=== PATIENT | female | born 1985 | race Caucasian/White ===

== ENCOUNTER 2017-08-07 16:48 | Inpatient (IN) | payer OTHER ==
[~2017-08-07] VITALS: Ht 167.6 cm; Wt 88.2 kg
[2017-08-07 17:29] LABS: ALANINE AMINOTRANSFERASE 15 U/L (12-78); ALBUMIN 2.6 g/dL (3.4-5.0); ANION GAP 12 mmol/L (5-15); CALCIUM 8.5 mg/dL (8.5-10.1); CHLORIDE 106 mmol/L (98-107); CREATININE 0.61 mg/dL (0.55-1.02)
[2017-08-07 17:30] LABS: BILIRUBIN, DIRECT < 0.1 mg/dL (0.1-0.2)
[2017-08-07 17:31] LABS: BASOPHILS # (AUTO) 0.03 x10^3/uL (0-0.1); BASOPHILS % (AUTO) 0 % (0-1); EOSINOPHILS # (AUTO) 0.02 x10^3/uL (0-0.4); EOSINOPHILS % (AUTO) 0 % (1-7); LYMPHOCYTES # (AUTO) 2.26 x10^3/uL (1-3.4); LYMPHOCYTES % (AUTO) 24 % (22-44); MD NO; MEAN CORPUSCULAR HEMOGLOBIN 30.3 pg (27.0-34.8); MEAN CORPUSCULAR HGB CONC 33.3 g/dL (32.4-35.8); MEAN PLATELET VOLUME 9.8 fL (7.4-10.4); MONOCYTES # (AUTO) 0.89 x10^3/uL (0.2-0.8); MONOCYTES % (AUTO) 10 % (2-9); NEUTROPHILS # (AUTO) 6.08 x10^3/uL (1.8-6.8); NEUTROPHILS % (AUTO) 66 % (42-75); PLATELET COUNT 245 x10^3/uL (130-400); RED BLOOD COUNT 4.13 x10^6/uL (3.82-5.3); RED CELL DISTRIBUTION WIDTH 14.2 % (9.6-15.2)
[2017-08-07 17:31] LABS: AMNISURE POSITIVE (NEGATIVE)
[2017-08-07 17:32] LABS: ALKALINE PHOSPHATASE 157 U/L (45-117); BILIRUBIN,TOTAL 0.2 mg/dL (0.2-1.0)
[2017-08-07] MEDS ORDERED: OXYTOCIN 30U/ 0.9% NaCL 500ML 500 ML IV ONE (17:35)
[2017-08-07] MEDS ORDERED: D5%-LACTATED RINGERS 1,000 ML IV SCH (17:35)
[2017-08-07] MEDS ORDERED: CALCIUM CARBONATE 500 MG TAB.CHEW PO PRN (18:00)
[2017-08-07] MEDS ORDERED: ONDANSETRON 2MG/ML, 2ML IVPush PRN (18:00)
[2017-08-07] MEDS ORDERED: FENTANYL PF 100 MCG/2ML IV PRN (18:00)
[2017-08-07] MEDS ORDERED: NEWBORN KIT ONE (18:18)
[2017-08-07] MEDS: LACTATED RINGERS 1,000 ML IV SCH (18:33)
[2017-08-08] MEDS ORDERED: FENTANYL PF 100 MCG/2ML ONE ×2 (01:55→12:39)
[2017-08-08] MEDS ORDERED: OXYTOCIN 30U/ 0.9% NaCL 500ML 500 ML ONE ×2 (01:56→13:11)
[2017-08-08] MEDS: FENTANYL PF 100 MCG/2ML IVPush PRN ×2 (01:58→12:42)
[2017-08-08] MEDS: LACTATED RINGERS 1,000 ML IV SCH ×4 (02:00→21:12)
[2017-08-08] MEDS ORDERED: LIDOCAINE-MPF 2% ,5ML ONE (03:24)
[2017-08-08] MEDS ORDERED: FENTANYL/BUPIV./NS/PF 250 ML EPIDCONT ONE (03:25)
[2017-08-08] MEDS ORDERED: LIDOCAINE/PF 1.5%-EPI 1:200K, 30ML ONE (03:26)
[2017-08-08] MEDS ORDERED: BUPIVACAINE 0.25% ONE (03:26)
[2017-08-08] MEDS ORDERED: FENTANYL/BUPIV./NS/PF 250 ML EPIDCONT SCH (04:01)
[2017-08-08] MEDS ORDERED: LACTATED RINGERS 1,000 ML IVBOLUS PRN (04:30)
[2017-08-08] MEDS ORDERED: EPHEDRINE 50 MG/ML, 1ML IVPush PRN (04:30)
[2017-08-08] MEDS ORDERED: NALOXONE 0.4 MG/ML, 1ML IVPush PRN (04:30)
[2017-08-08 07:39] LABS: ALANINE AMINOTRANSFERASE 13 U/L (12-78); ALBUMIN 2.3 g/dL (3.4-5.0); ANION GAP 10 mmol/L (5-15); CALCIUM 8.1 mg/dL (8.5-10.1); CHLORIDE 106 mmol/L (98-107)
[2017-08-08 07:42] LABS: ALKALINE PHOSPHATASE 143 U/L (45-117); BILIRUBIN,TOTAL 0.2 mg/dL (0.2-1.0); CREATININE 0.63 mg/dL (0.55-1.02); TOTAL PROTEIN 6.2 g/dL (6.4-8.2)
[2017-08-08 08:17] LABS: BILIRUBIN, DIRECT < 0.1 mg/dL (0.1-0.2); MEAN CORPUSCULAR HEMOGLOBIN 31.2 pg (27.0-34.8); MEAN CORPUSCULAR HGB CONC 34.1 g/dL (32.4-35.8); MEAN CORPUSCULAR VOLUME 91.3 fL (80-100); MEAN PLATELET VOLUME 10.2 fL (7.4-10.4); PLATELET COUNT 227 x10^3/uL (130-400); RED BLOOD COUNT 3.94 x10^6/uL (3.82-5.3); RED CELL DISTRIBUTION WIDTH 14.5 % (9.6-15.2)
[2017-08-08 08:44] LABS: BASOPHILS # (AUTO) 0.05 x10^3/uL (0-0.1); BASOPHILS % (AUTO) 0 % (0-1); EOSINOPHILS # (AUTO) 0.02 x10^3/uL (0-0.4); EOSINOPHILS % (AUTO) 0 % (1-7); LYMPHOCYTES # (AUTO) 1.88 x10^3/uL (1-3.4); LYMPHOCYTES % (AUTO) 13 % (22-44); MD SCAN; MONOCYTES # (AUTO) 0.96 x10^3/uL (0.2-0.8); MONOCYTES % (AUTO) 6 % (2-9); NEUTROPHILS # (AUTO) 12.03 x10^3/uL (1.8-6.8); NEUTROPHILS % (AUTO) 81 % (42-75)
[2017-08-08 12:00] LABS: MICROSCOPIC INDICATED
[2017-08-08] MEDS ORDERED: METHYLERGONOVINE 0.2 MG/ML IM STA (12:48)
[2017-08-08] MEDS ORDERED: METHYLERGONOVINE 0.2 MG/ML IM PRN (13:00)
[2017-08-08] MEDS ORDERED: CARBOPROST TROMETHAMINE 250 MCG/ML, 1ML IM PRN (13:00)
[2017-08-08] MEDS ORDERED: OXYTOCIN 10 UNITS/ML, 1ML IM PRN (13:00)
[2017-08-08] MEDS ORDERED: MISOPROSTOL 200 MCG TABLET PR PRN (13:00)
[2017-08-08] MEDS ORDERED: ACETAMINOPHEN 325 MG TABLET PO PRN (13:00)
[2017-08-08] MEDS ORDERED: METHYLERGONOVINE 0.2 MG/ML IM ONE ×2 (13:00→13:28)
[2017-08-08] MEDS ORDERED: ONDANSETRON 2MG/ML, 2ML IV PRN (13:00)
[2017-08-08] MEDS ORDERED: CEFAZOLIN PMX 1GM/50ML 50 ML ONE ×2 (13:12→20:46)
[2017-08-08 13:13] LABS: MEAN CORPUSCULAR HEMOGLOBIN 30.5 pg (27.0-34.8); MEAN CORPUSCULAR HGB CONC 33.2 g/dL (32.4-35.8); MEAN CORPUSCULAR VOLUME 91.6 fL (80-100); MEAN PLATELET VOLUME 9.4 fL (7.4-10.4); PLATELET COUNT 201 x10^3/uL (130-400); RED BLOOD COUNT 4.02 x10^6/uL (3.82-5.3); RED CELL DISTRIBUTION WIDTH 14.2 % (9.6-15.2)
[2017-08-08] MEDS: OXYTOCIN 30U/ 0.9% NaCL 500ML 500 ML IV SCH (13:15)
[2017-08-08] MEDS: CEFAZOLIN PMX 1GM/50ML 50 ML IV SCH ×2 (13:16→21:12)
[2017-08-08 13:29] LABS: BASOPHILS # (AUTO) 0.07 x10^3/uL (0-0.1); BASOPHILS % (AUTO) 0 % (0-1); EOSINOPHILS # (AUTO) 0.01 x10^3/uL (0-0.4); EOSINOPHILS % (AUTO) 0 % (1-7); LYMPHOCYTES # (AUTO) 1.33 x10^3/uL (1-3.4); LYMPHOCYTES % (AUTO) 9 % (22-44); MD SCAN; MONOCYTES # (AUTO) 0.72 x10^3/uL (0.2-0.8); MONOCYTES % (AUTO) 5 % (2-9); NEUTROPHILS # (AUTO) 12.82 x10^3/uL (1.8-6.8); NEUTROPHILS % (AUTO) 86 % (42-75)
[2017-08-08 13:33] LABS: INTERNATIONAL NORMALIZED RATIO 0.95 (0.93-1.1); PROTHROMBIN TIME 9.9 Seconds (9.6-11.5)
[2017-08-08] MEDS ORDERED: ONDANSETRON 2MG/ML, 2ML ONE (16:00)
[2017-08-08] MEDS ORDERED: OXYcodone/APAP 5/325MG TABLET ONE ×2 (19:21→23:55)
[2017-08-08] MEDS ORDERED: HYDROcodone/APAP 5/325 TABLET ONE ×2 (19:25→20:00)
[2017-08-08] MEDS: HYDROcodone/APAP 5/325 TABLET PO PRN ×2 (19:27→20:02)
[2017-08-08 20:10] VITALS: BP 122/84
[2017-08-08] MEDS ORDERED: IBUPROFEN 600 MG TABLET ONE (21:26)
[2017-08-08] MEDS: IBUPROFEN 600 MG TABLET PO PRN (21:28)
[2017-08-08 22:00] VITALS: BP 134/88
[2017-08-09 00:01] VITALS: BP 129/87
[2017-08-09] MEDS: HYDROcodone/APAP 5/325 TABLET PO PRN ×4 (00:01→17:48)
[2017-08-09] MEDS ORDERED: HYDROcodone/APAP 5/325 TABLET ONE ×2 (00:01)
[2017-08-09] MEDS ORDERED: IBUPROFEN 600 MG TABLET ONE (03:54)
[2017-08-09] MEDS: IBUPROFEN 600 MG TABLET PO PRN ×3 (03:55→17:48)
[2017-08-09] MEDS: LACTATED RINGERS 1,000 ML IV SCH (04:01)
[2017-08-09 04:03] VITALS: BP 128/65
[2017-08-09] MEDS ORDERED: CEFAZOLIN PMX 1GM/50ML 50 ML ONE ×2 (05:14→12:57)
[2017-08-09] MEDS: CEFAZOLIN PMX 1GM/50ML 50 ML IV SCH ×2 (05:17→13:00)
[2017-08-09 06:02] LABS: BASOPHILS # (AUTO) 0.04 x10^3/uL (0-0.1); BASOPHILS % (AUTO) 0 % (0-1); EOSINOPHILS # (AUTO) 0.08 x10^3/uL (0-0.4); EOSINOPHILS % (AUTO) 1 % (1-7); LYMPHOCYTES # (AUTO) 2.59 x10^3/uL (1-3.4); LYMPHOCYTES % (AUTO) 16 % (22-44); MD NO; MEAN CORPUSCULAR HEMOGLOBIN 30.8 pg (27.0-34.8); MEAN CORPUSCULAR HGB CONC 33.4 g/dL (32.4-35.8); MEAN CORPUSCULAR VOLUME 92.1 fL (80-100); MEAN PLATELET VOLUME 9.3 fL (7.4-10.4); MONOCYTES # (AUTO) 1.29 x10^3/uL (0.2-0.8); MONOCYTES % (AUTO) 8 % (2-9); NEUTROPHILS # (AUTO) 11.93 x10^3/uL (1.8-6.8); NEUTROPHILS % (AUTO) 75 % (42-75); PLATELET COUNT 168 x10^3/uL (130-400); RED CELL DISTRIBUTION WIDTH 14.5 % (9.6-15.2)
[2017-08-09 08:30] VITALS: BP 128/85
[2017-08-09] MEDS: OXYTOCIN 30U/ 0.9% NaCL 500ML 500 ML IV SCH ×3 (09:00→19:00)
[2017-08-09] MEDS: PRENATAL VIT/IRON/FA 1 EACH TABLET PO SCH (09:00)
[2017-08-09 09:50] VITALS: BP 128/87
[2017-08-09] MEDS: FERROUS GLUCONATE 324 MG TABLET PO SCH ×3 (11:59→17:48)
[2017-08-09 13:05] VITALS: BP 131/85
[2017-08-09 19:30] VITALS: BP 145/85
[2017-08-10 00:15] VITALS: BP 136/92
[2017-08-10] MEDS: IBUPROFEN 600 MG TABLET PO PRN ×2 (00:15→07:43)
[2017-08-10] MEDS: DOCUSATE 100 MG CAPSULE PO PRN ×2 (00:15→07:43)
[2017-08-10] MEDS: OXYTOCIN 30U/ 0.9% NaCL 500ML 500 ML IV SCH (05:00)
[2017-08-10 07:40] VITALS: BP 139/95
[2017-08-10] MEDS: FERROUS GLUCONATE 324 MG TABLET PO SCH (07:43)
[2017-08-10] MEDS: PRENATAL VIT/IRON/FA 1 EACH TABLET PO SCH (07:43)
[2017-08-10] MEDS: HYDROcodone/APAP 5/325 TABLET PO PRN (08:25)
[2017-08-10] MEDS ORDERED: IBUP-1223 PO (11:05)
[2017-08-10] MEDS ORDERED: HYDR-3240 PO (11:06)
[2017-08-10] MEDS ORDERED: SENN-52 PO (11:07)
[2017-08-10] MEDS ORDERED: FERR324T8 PO (11:08)
== END 2017-08-10 12:35 | disposition home or self-care (01) | DRG 775 ==
LOC: LDOP 16:48 → LDIP 17:35 → 2NE 08-08 17:06 → 2NW 08-09 10:19
PROVIDERS: ADMIT Obstetrics & Gynecology; ATTEND Obstetrics & Gynecology
PROC: 10E0XZZ Delivery of Products of Conception, External Approach (ICD-10-PCS; principal; 2017-08-08)
PROC: 0HQ9XZZ Repair Perineum Skin, External Approach (ICD-10-PCS; 2017-08-08)
PROC: 0UQMXZZ Repair Vulva, External Approach (ICD-10-PCS; 2017-08-08)
PROC: 3E0R3BZ Introduction of Anesthetic Agent into Spinal Canal, Percutaneous Approach (ICD-10-PCS; 2017-08-08)
PROC: 00HU33Z Insertion of Infusion Device into Spinal Canal, Percutaneous Approach (ICD-10-PCS; 2017-08-08)
DX: O13.4 Gestational [pregnancy-induced] hypertension without significant proteinuria, complicating childbirth (principal); O99.354 Diseases of the nervous system complicating childbirth; J45.909 Unspecified asthma, uncomplicated; Z37.0 Single live birth; O99.52 Diseases of the respiratory system complicating childbirth; Z3A.37 37 weeks gestation of pregnancy; O70.0 First degree perineal laceration during delivery; O71.82 Other specified trauma to perineum and vulva; G43.909 Migraine, unspecified, not intractable, without status migrainosus
CPT/HCPCS: 36415; 80053; 81001; 82248; 84112; 84550; 85025; 85384; 85610; 85730; 86592; 86703; 86762; 86850; 86900; 87340; 87899; 88305; J0690; J2405; J3010; J3490; G0435; J2210; J2590; J7120; J7121